=== PATIENT | female | born 1975 | race Caucasian/White ===

== ENCOUNTER 2023-06-01 11:30 | Outpatient (RCR) | payer OTHER, SELFPAY | END 2023-06-25 15:32 | disposition home or self-care (01) | PROVIDERS: PCP Physician Assistant Medical; Visit Provider Physician Assistant Medical | DX: S63.502D Unspecified sprain of left wrist, subsequent encounter (principal); Z51.89 Encounter for other specified aftercare | CPT/HCPCS: 97033; 97035; 97110; 97140; 97165; L3808; X5282 ==

== ENCOUNTER 2024-04-05 13:00 | Outpatient (RCR) | payer OTHER, BC, SELFPAY | END 2024-04-05 16:55 | disposition home or self-care (01) | PROVIDERS: PCP Physician Assistant Medical; Visit Provider Family Medicine | DX: M24.10 Other articular cartilage disorders, unspecified site (principal); M25.532 Pain in left wrist; Z51.89 Encounter for other specified aftercare | CPT/HCPCS: 97035; 97110; 97140; 97165; 97535; L3913; X5282 ==

== ENCOUNTER 2024-12-14 08:45 | Outpatient (RCR) | payer BC, SELFPAY | END 2025-01-10 13:33 | disposition home or self-care (01) | PROVIDERS: PCP Physician Assistant Medical; Visit Provider Physician Assistant Medical | DX: M25.812 Other specified joint disorders, left shoulder (principal); M25.512 Pain in left shoulder; M62.81 Muscle weakness (generalized); Z51.89 Encounter for other specified aftercare | CPT/HCPCS: 97110; 97140; 97161 ==